=== PATIENT | female | born 1985 | race Caucasian/White ===

== ENCOUNTER → 2017-02-17 | Outpatient (CLI) | payer BC ==
[~2017-02-17] MED LIST: BUPIVACAINE/PF 0.5% ONE; EPINEPHRINE 1 MG/ML, 1ML ONE; FAMO-79 PO; IBUP200C8 PO; LIDOCAINE/PF 1.5%-EPI 1:200K, 30ML ONE
== END | disposition home or self-care (01) ==
LOC: STAR 09:57
PROVIDERS: ATTEND Orthopaedic Surgery
DX: Z02.9 Encounter for administrative examinations, unspecified (principal)

== ENCOUNTER 2017-02-24 05:37 | Day surgery (SDC) | payer BC ==
[~2017-02-24] VITALS: Ht 167.6 cm; Wt 62.9 kg
[~2017-02-24 05:37] MED LIST changes: -BUPIVACAINE/PF 0.5% ONE; -EPINEPHRINE 1 MG/ML, 1ML ONE; -LIDOCAINE/PF 1.5%-EPI 1:200K, 30ML ONE
[2017-02-24] MEDS ORDERED: LACTATED RINGERS 1,000 ML IV SCH (06:04)
[2017-02-24 06:09] VITALS: BP 133/93
[2017-02-24] MEDS ORDERED: MIDAZOLAM 1 MG/ML, 2ML ONE (06:35)
[2017-02-24] MEDS ORDERED: SCOPOLAMINE PATCH, 1.5MG PATCH.TD72 TD ONE (06:35)
[2017-02-24] MEDS ORDERED: FENTANYL PF 100 MCG/2ML ONE ×2 (06:35→07:43)
[2017-02-24 06:42] LABS: HCG UR OBC PASS
[2017-02-24] MEDS ORDERED: ONDANSETRON 2MG/ML, 2ML ONE ×2 (06:42→08:11)
[2017-02-24] MEDS ORDERED: PROPOFOL 10 MG/ML, 20ML ONE (06:42)
[2017-02-24] MEDS ORDERED: KETOROLAC 30 MG/1 ML ONE (06:42)
[2017-02-24] MEDS ORDERED: CEFAZOLIN 1,000 MG ONE (06:42)
[2017-02-24] MEDS ORDERED: DEXAMETHASONE 4 MG/ML, 1ML ONE (06:42)
[2017-02-24] MEDS ORDERED: BUPIVACAINE/PF-EPI 0.5% 1:200K INFIL ONE (06:58)
[2017-02-24] MEDS ORDERED: ALBUTEROL SULFATE 2.5 MG/3 ML NPPB PRN (07:00)
[2017-02-24] MEDS ORDERED: PROMETHAZINE 25 MG/ML, 1ML IV PRN (07:00)
[2017-02-24] MEDS ORDERED: ONDANSETRON 2MG/ML, 2ML IVPush PRN (07:00)
[2017-02-24] MEDS ORDERED: LABETALOL 5MG/ML, 20ML IV PRN (07:00)
[2017-02-24] MEDS ORDERED: IBUPROFEN 200 MG TABLET PO PRN (07:00)
[2017-02-24] MEDS ORDERED: EPHEDRINE 50 MG/ML, 1ML IVPush PRN (07:00)
[2017-02-24] MEDS ORDERED: hydrALAzine 20 MG/ML, 1ML IV PRN (07:00)
[2017-02-24] MEDS ORDERED: OXYcodone 5 MG/5 ML ORAL.SOL UDC PO PRN (07:00)
[2017-02-24] MEDS ORDERED: ACETAMINOPHEN 325 MG TABLET PO PRN (07:00)
[2017-02-24] MEDS ORDERED: MEPERIDINE/PF 25MG/0.5ML IVPush PRN (07:00)
[2017-02-24] MEDS: FENTANYL PF 100 MCG/2ML IV PRN ×2 (07:46→08:14)
[2017-02-24] MEDS ORDERED: IBUPROFEN 200 MG TABLET ONE (07:48)
[2017-02-24] MEDS ORDERED: FAMOTIDINE 20 MG TABLET PO SCH (09:00)
== END 2017-02-24 09:45 ==
LOC: OUT 05:37
PROVIDERS: ATTEND Orthopaedic Surgery
DX: M94.262 Chondromalacia, left knee (principal); M25.862 Other specified joint disorders, left knee; Z87.891 Personal history of nicotine dependence; Z88.6 Allergy status to analgesic agent; Z98.890 Other specified postprocedural states
CPT/HCPCS: 29879; 81025; J0171; J0690; J1100; J1885; J2405; J2704; J3010; J3490; J7120; J2250